=== PATIENT | male | born 1955 | race Caucasian/White ===

== ENCOUNTER 2019-01-29 13:48 | Emergency (ER) | payer MEDICARE ==
[~2019-01-29] VITALS: Ht 182.9 cm; Wt 93.0 kg
[2019-01-29 14:20] VITALS: BP 124/69
== END 2019-01-29 15:22 | disposition home or self-care (01) ==
LOC: ER 13:49
DX: R03.0 Elevated blood-pressure reading, without diagnosis of hypertension (principal)
CPT/HCPCS: 99281